=== PATIENT | female | born 1950 | race Caucasian/White ===

== ENCOUNTER → 2022-07-13 | Outpatient (CLI) | payer MEDICARE, OTHER ==
[~2022-07-13] MED LIST: ASPI81CH; EZET10 PO; HYOS.125 PO; Prinivil10 MG PO; RANI150 PO; VITAMIN D-32000 UNIT PO; Wellbutrin Sr200 MG PO
== END | disposition home or self-care (01) ==
LOC: LAB SHORT 17:28
PROVIDERS: Family Medicine
DX: Z12.4 Encounter for screening for malignant neoplasm of cervix (principal); R31.9 Hematuria, unspecified
CPT/HCPCS: 87070; 87205